=== PATIENT | female | born 1940 | race Caucasian/White ===

== ENCOUNTER 2016-11-03 10:05 | Inpatient (IN) | payer MEDICARE ==
[2016-11-03 10:40] LABS: ABSOLUTE NEUTROPHIL COUNT 11.4 K/mm3 (1.8-7.7); BASO # 0.1 K/mm3 (0.0-0.2); BASO % 0.4 % (0.2-1.0); EOS # 0.5 (0.0-0.5); EOS % 3.2 % (0.9-2.9); HEMATOCRIT 33.2 % (37.0-47.0); IMM NEUT # 0.1 K/mm3 (0-0.2); IMM NEUT% 0.6 % (0-1); LYMPH % 12.7 % (15-45); MEAN CORPUSCULAR HGB CONC 30.1 g/dl (33.0-37.0); MEAN PLATELET VOLUME 8.6 fl (7.4-10.4); MONO # 1.4 (0.0-0.8); MONO % 9.3 % (4-12); NEUT % 73.8 % (43-75); PLATELET COUNT 343 K/mm3 (130-400)
[2016-11-03 11:01] LABS: ALB/GLOB RATIO 1.2 (>1.0); ALBUMIN 3.6 gm/dL (3.5-5.7); CALCIUM 8.7 mg/dL (8.6-10.3)
[2016-11-03 12:05] LABS: URINE APPEARANCE CLEAR; URINE BILIRUBIN NEGATIVE (NEGATIVE); URINE BLOOD NEGATIVE (NEGATIVE); URINE COLOR YELLOW; URINE GLUCOSE (UA) NEGATIVE (NEGATIVE); URINE LEUKOCYTE ESTERASE NEGATIVE (NEGATIVE); URINE NITRITE NEGATIVE (NEGATIVE); URINE PROTEIN NEGATIVE (NEGATIVE); URINE UROBILINOGEN NORMAL (0-1 mg/dl)
--- NOTE | 2016-11-03 12:08 | RAD ---
CHEST - 2 VIEWS COMPARISON: Chest 2 views, 06/20/2016 HISTORY: Shortness of breath for 4 days. Past medical history of myocardial infarction, asthma, chronic obstructive pulmonary disease. Past surgical history of cardiac ablation x3. FINDINGS: Views: Frontal and lateral chest Lungs: Clear. In the posterior left perihilar region, 15 mm long foreign body, with metal and nonmetallic components, possibly associated with prior cardiac ablation. Heart and vessels: Normal heart size. Trachea and bronchi: Normal Mediastinum and [place]: Normal Costophrenic sulci: Normal Chest wall and bones: Normal. Upper abdomen: Normal. IMPRESSION: No acute finding. 15 mm long foreign body in the posterior left perihilar region, possibly associated with prior cardiac ablation.
[2016-11-03] MEDS ORDERED: BUMETANIDE 0.25 MG/ML 4ML VIAL IV ONE (12:30)
[2016-11-03 13:24] VITALS: BMI 32.3
[2016-11-03] MEDS ORDERED: MENTHOL/CETYLPYRD 1 EACH LOZENGE PO PRN (14:19)
[2016-11-03] MEDS ORDERED: BLISTEX LIPSTICK 1 EACH TP PRN (14:19)
[2016-11-03] MEDS ORDERED: SODIUM CHLORIDE 0.9% 100 ML IV PRN (14:19)
[2016-11-03] MEDS ORDERED: NITROGLYCERIN SL PRN (14:28)
[2016-11-03] MEDS ORDERED: POLYETHYLENE GLYCOL 3350 17 G POWD.SUSP PO PRN (14:28)
[2016-11-03] MEDS ORDERED: TRAMADOL HCL 50 MG TABLET PO PRN (14:28)
[2016-11-03] MEDS ORDERED: METOLAZONE 2.5 MG TABLET PO SCH (14:30)
--- NOTE | 2016-11-03 16:33 | HP ---
KUNAL COY [id number] : 1940 DATE OF ADMISSION: November 03, 2016 IDENTIFICATION: Ms. Coy is a 76-year-old patient of Dr. Julien Gómez and Dr. Oswald. CHIEF COMPLAINT: Shortness of breath. HISTORY OF PRESENT ILLNESS: Ms. Coy reports a two week history of intermittent symptoms of increasing dyspnea. She has had paroxysmal nocturnal dyspnea and nonproductive cough. She also reports episodes where she feels faint and thinks her blood pressure is low. She has not had any chest pain or palpitations. She has felt that her legs have been more swollen and her abdomen more swollen than usual, and she has noted up to seven pounds weight gain on her daily weight. Recently she has been unable to use her CPAP for obstructive sleep apnea due to an itchy nose, and she used to treat that with Nasonex but her insurance stopped paying for Nasonex so she has not been using it. She was not aware that it is now available over the counter. She had more severe dyspnea today so came to the emergency department and was found to have a saturation of 85% on room air and mildly elevated B-type natriuretic peptide. She was given an additional dose of bumetanide IV and referred to the hospitalist service. REVIEW OF SYSTEMS: HEENT: Headache currently and episodes of faintness. No loss of consciousness. She reports an ear infection on the left side about a month ago which has resolved. The itchy nose with allergies that is preventing her from using her CPAP. RESPIRATORY: As per History of Present Illness. CARDIAC: As per History of Present Illness. GASTROINTESTINAL: Intermittent reflux symptoms, no nausea or vomiting. No diarrhea, constipation, hematochezia or melena but does feel that her abdomen is distended or edematous. GENITOURINARY: She has had some hesitancy but not since her extra dose of Bumex. No dysuria. MUSCULOSKELETAL: Feels her feet and legs have been swollen. CONSTITUTIONAL: No fever or chills but has had weight increase up to seven pounds. PAST MEDICAL HISTORY: 1. Coronary artery disease with previous myocardial infarction noted. 2. Chronic diastolic heart failure. Echocardiogram in June,, showed left ventricular ejection fraction of 75%. 3. Chronic atrial fibrillation status post at least four different ablation procedures. She currently has an implanted loop recorder and is on anticoagulation with Eliquis. 4. Cerebrovascular disease with a prior stroke resulting in some mild expressive aphasia but that has resolved. The stroke was about ten years ago. 5. Chronic obstructive pulmonary disease with chronic respiratory failure using one to two liters of oxygen per minute intermittently at home. 6. Gout. 7. Gastroesophageal reflux disease. 8. Peripheral neuropathy. 9. Hypothyroidism status post thyroidectomy for Graves' disease. 10. Obstructive sleep apnea treated with CPAP but as above, she has been unable to use the CPAP for the last month. 11. Obesity with a body mass index of 32.3. 12. Allergic rhinitis. PAST SURGICAL HISTORY: 1. Appendectomy. 2. Multiple cardiac ablation procedures and the implanted loop recorder. 3. Cholecystectomy. 4. Cervical laminectomy. 5. Thyroidectomy. 6. Left elbow surgery. 7. Bilateral cataracts. ALLERGIES: MULTIPLE REPORTED TO: 1. ACETAMINOPHEN. 2. IBUPROFEN. 3. LISINOPRIL. 4. PROPAFENONE. 5. NITROFURANTOIN. 6. ADHESIVES. 7. ALLOPURINOL. 8. ATENOLOL. 9. METOPROLOL. MEDICATIONS: 1. Bumetanide 1 mg orally daily. 2. Isosorbide mononitrate 60 mg orally daily. 3. Uloric 40 mg orally daily. 4. Valsartan 80 mg orally daily. 5. Eliquis 5 mg orally twice daily. 6. Digoxin 0.125 mg orally daily. 7. Carvedilol 6.25 mg orally twice daily. 8. Metolazone 2.5 mg orally every other day or every 48 hours. Last taken yesterday. 9. Levothyroxine 175 mcg orally daily. 10. Levalbuterol HFA two puffs every four to six hours as needed. 11. Flecainide 50 mg orally every 12 hours. 12. Pantoprazole 40 mg orally daily. 13. Nitroglycerin 0.3 mg sublingual every five minutes as needed. Last used about two weeks ago. 14. Valacyclovir 500 mg orally daily. 15. Tramadol 50 mg orally three times daily as needed. 16. Stiolto Respimat two puffs inhaled each morning. 17. Pramipexole 0.5 mg orally nightly. 18. Potassium chloride 10 mEq orally daily. She does take an extra dose if she takes an extra diuretic. 19. MiraLax 17 g daily as needed. HABITS: She is a former smoker but quit at least 25 years ago. No alcohol or drug use. SOCIAL HISTORY: She lives alone and is independent in her activities of daily living but does live on the same property as her daughter, and her daughter helps her as needed. FAMILY HISTORY: Mother had breast cancer and stroke. Her brother had cancer of unknown type. PHYSICAL EXAMINATION: GENERAL: This is a pleasant 76-year-old in no acute distress. VITAL SIGNS: Temperature 98.9 degrees Fahrenheit, pulse 62, blood pressure 138/67, respiratory rate 18, oxygen saturation 85% on room air and 95% on two liters of oxygen by nasal cannula. HEENT: Pupils are equal, round and reactive. Extraocular muscles are intact. Oropharynx is moist. Artificial dentures in place. CHEST: Decreased breath sounds throughout. No wheezes, rhonchi or crackles appreciated. HEART: Is regular with a 2 to 3/6 systolic murmur. ABDOMEN: Is distended, soft, nontender, normal bowel tones. No organomegaly. EXTREMITIES: Trace edema in the upper calves, none at the ankles or feet. Good dorsalis pedis pulses. No cyanosis or clubbing. She does have onychomycosis of the toenails. NEUROLOGIC: Alert and oriented. No focal deficits. LABORATORY DATA: White blood cell count is elevated at 15.4, hemoglobin and hematocrit 10.0 and 33.2, platelets 343. Sodium 133, potassium 4.8, chloride 99, CO2 25, BUN 21, creatinine 1.0, glucose 107. Troponin I is less than 0.01. B-type natriuretic peptide is 222. Urinalysis is normal. RADIOLOGY: Chest x-ray read as no acute findings. The loop recorder is evident. ELECTROCARDIOGRAM: Sinus rhythm with first degree AV block. ASSESSMENT: 1. Ms. Coy appears to have exacerbation of chronic diastolic heart failure with acute on chronic hypoxemic respiratory failure. 2. Chronic obstructive pulmonary disease with chronic hypoxemic respiratory failure. 3. Obstructive sleep apnea with recent inability to use CPAP due to allergic rhinitis which has been untreated. 4. Underlying coronary artery disease with no evidence of current acute coronary syndrome. 5. Cerebrovascular disease. 6. Hypothyroidism. 7. Gastroesophageal reflux disease. 8. Chronic kidney disease stage 3 with chronic anemia. These appear to be at baseline. PLAN: 1. Admit to medical/surgical floor. 2. She was given an extra dose of Bumex in the emergency department. We will follow for diuretic response and provide additional diuresis as indicated. 3. Supplemental oxygen as needed and continue usual inhalers. 4. Start loratadine and Nasonex and encourage use of the CPAP. 5. Continue other outpatient medications. 6. FULL CODE status. 7. Patient is anticoagulated on Eliquis and does not require additional venous thromboembolism prophylaxis. 8. Physical and occupational therapy evaluation and treatment. She may be a candidate for acute rehabilitation therapy.
[2016-11-03] MEDS: MOMETASONE FUROATE NS SCH (16:48)
[2016-11-03] MEDS: POTASSIUM CHLORIDE 10 MEQ TAB.SR PO SCH (16:48)
[2016-11-03] MEDS: LORATADINE 10 MG TABLET PO SCH (16:48)
[2016-11-03] MEDS: PRAMIPEXOLE DI-HCL 0.25 MG TABLET PO SCH (20:23)
[2016-11-03] MEDS: FLECAINIDE ACETATE 50 MG TABLET PO SCH (20:23)
[2016-11-03] MEDS: CARVEDILOL 6.25 MG TABLET PO SCH (20:24)
[2016-11-03] MEDS: APIXABAN 5 MG TABLET PO SCH (20:24)
[2016-11-03] MEDS: DOCUSATE SODIUM 100 MG CAPSULE PO SCH (20:24)
[2016-11-04] MEDS: ISOSORBIDE MONONITRATE 60 MG TAB.SR PO SCH (05:01)
[2016-11-04] MEDS: LEVOTHYROXINE SODIUM 175 MCG TABLET PO SCH (07:20)
[2016-11-04] MEDS: APIXABAN 5 MG TABLET PO SCH ×2 (08:55→20:31)
[2016-11-04] MEDS: VALACYCLOVIR 500 MG TABLET PO SCH (08:55)
[2016-11-04] MEDS: FEBUXOSTAT 40 MG TABLET PO SCH (08:56)
[2016-11-04] MEDS: BUMETANIDE 1 MG TABLET PO SCH (08:57)
[2016-11-04] MEDS: LORATADINE 10 MG TABLET PO SCH (08:57)
[2016-11-04] MEDS: PANTOPRAZOLE 40 MG TABLET DR PO SCH (08:57)
[2016-11-04] MEDS: POTASSIUM CHLORIDE 10 MEQ TAB.SR PO SCH (08:57)
[2016-11-04] MEDS: MOMETASONE FUROATE NS SCH (08:57)
[2016-11-04] MEDS: FLECAINIDE ACETATE 50 MG TABLET PO SCH ×2 (08:57→20:32)
[2016-11-04] MEDS: DOCUSATE SODIUM 100 MG CAPSULE PO SCH ×3 (08:57→20:31)
[2016-11-04] MEDS: VALSARTAN 80 MG TABLET PO SCH (08:57)
[2016-11-04] MEDS: CARVEDILOL 6.25 MG TABLET PO SCH ×2 (08:57→20:32)
--- NOTE | 2016-11-04 11:51 | PDOC43 ---
- Subjective Chief Complaint: Dyspnea Patient reports having some dyspnea on exertion but sats did not drop. She also notes some ankle pain on right, not sure if it's gout related or not. In the past, she did get some long acting NTG (IMdur?) which did help some She recalls having some edema of ankles. She reports some sensation of abdominal bloating. - Objective Vital Signs Temperature 98.0 F 11/04/16 07:04 Pulse Rate 74 11/04/16 07:04 Respiratory Rate 24 11/04/16 07:04 Blood Pressure 123/67 11/04/16 07:04 O2 Saturation by Pulse Oximetry 91 11/04/16 07:04 Oxygen Delivery Method Nasal Cannula Oxygen Flow Rate 1 Vital Signs Last 12 Hours Temp Pulse Resp BP Pulse Ox 11/04/16 07:04 98.0 F 74 24 123/67 91 11/04/16 07:00 24 11/04/16 03:34 98.2 F 61 20 133/56 95 11/04/16 01:10 20 Intake and Output 11/02/16 11/03/16 11/04/16 23:59 23:59 23:59 Intake Total 620 1000 Output Total 650 800 Balance -30 200 General: Alert, Cooperative, No Acute Distress HEENT: Atraumatic Lungs: Clear to Auscultation Bilaterally Cardiovascular: Regular Rate and Rhythm Abdomen: Soft Extremities: Edema (no significant pitting edema. R ankle not red or hot. Feet appear normal.) Skin: Normal Color Neurological: Normal Speech Psych/Mental Status: Normal Affect Laboratory Tests 11/03/16 11/04/16 10:25 06:15 Troponin I < 0.01 0.02 B-Natriuretic Peptide 222 H Current Medications: Current meds reviewed in EMR. Active Medications Apixaban (Eliquis) 5 mg PO BID [facility] Last Admin: 11/04/16 08:55 Dose: 5 mg Benzocaine/Menthol (Cepacol) 1 each PO PRN PRN PRN Reason: Sore Throat Bumetanide (Bumex) 1 mg PO DAILY [facility] Last Admin: 11/04/16 08:57 Dose: 1 mg Carvedilol (Coreg) 6.25 mg PO BID [facility] Last Admin: 11/04/16 08:57 Dose: 6.25 mg Digoxin (Lanoxin) 0.125 mg PO DAILY@1200 [facility] Docusate Sodium (Colace) 100 mg PO BID [facility] Last Admin: 11/04/16 08:59 Dose: Not Given Flecainide Acetate (Tambobor) 50 mg PO Q12H [facility] Last Admin: 11/04/16 08:57 Dose: 50 mg Sodium Chloride (Sodium Chloride 0.9%) 100 mls @ 25 mls/hr IV PRN PRN PRN Reason: Flush Isosorbide Mononitrate (Imdur) 60 mg PO 0530 [facility] Last Admin: 11/04/16 05:01 Dose: 60 mg Levothyroxine Sodium (Levothroid) 175 mcg PO 0700 [facility] Last Admin: 11/04/16 07:20 Dose: 175 mcg Loratadine (Claritin) 10 mg PO DAILY [facility] Last Admin: 11/04/16 08:57 Dose: 10 mg Metolazone (Zaroxolyn) 2.5 mg PO Q48H [facility] Last Admin: 11/03/16 15:52 Dose: Not Given Miscellaneous (Levalbuterol Tartrate [Xopenex Hfa Mdi]) 2 puff IH Q4-6H PRN PRN Reason: Wheezing Miscellaneous (Tiotropium Br/Olodaterol Hcl [Stiolto Respimat Inhal [place]]) 2 puffs IH DAILY [facility] Mometasone Furoate (Nasonex) 2 sprays NS DAILY [facility] Last Admin: 11/04/16 08:57 Dose: 2 sprays Nitroglycerin (Nitrostat) 0.3 mg SL Q5M PRN PRN Reason: Chest Pain Pantoprazole Sodium (Protonix) 40 mg PO DAILY [facility] Last Admin: 11/04/16 08:57 Dose: 40 mg Petrolatum/Paraffin/Mineral Oil (Blistex) 1 each TP PRN PRN PRN Reason: Dry and/or chapped lips Polyethylene Glycol/Electrolytes (Miralax) 17 g PO DAILY PRN PRN Reason: Constipation Potassium Chloride (K-Dur) 10 meq PO DAILY [facility] Last Admin: 11/04/16 08:57 Dose: 10 meq Pramipexole Dihydrochloride (Pramipexole Dihydrochloride) 0.5 mg PO BEDTIME [facility] Last Admin: 11/03/16 20:23 Dose: 0.5 mg Sodium Chloride (Normal Saline 10ml Flush) 10 - 50 ml IV PRN PRN PRN Reason: IV Flush Sodium Chloride (Normal Saline 10ml Flush) 10 ml IV Q8HR [facility] Last Admin: 11/04/16 08:58 Dose: 10 ml Tramadol HCl (Ultram) 50 mg PO TID PRN PRN Reason: Pain Valacyclovir HCl (Valtrex) 500 mg PO DAILY [facility] Last Admin: 11/04/16 08:55 Dose: 500 mg Valsartan (Diovan) 80 mg PO DAILY [facility] Last Admin: 11/04/16 08:57 Dose: 80 mg - Problems: Assessment/Plan (1) CHF (congestive heart failure) Qualifiers: Congestive heart failure type: diastolic Congestive heart failure chronicity: chronic Qualifier Code: (I50.32) Chronic diastolic (congestive) heart failure Status: AcuteAssessment/Plan: BNP not reuben elevated, CXR not sugg of acute worsening. With poor activity tolerance, plan check echo, stress test (2) COPD (chronic obstructive pulmonary disease) Qualifiers: COPD type: unspecified COPD Qualifier Code: (J44.9) Chronic obstructive pulmonary disease, unspecified Status: ChronicAssessment/Plan: Maintaining sats despite sensation of dyspnea on walking. CXR not sugg acute change Continue regular meds. (3) CAD (coronary artery disease) Status: ChronicAssessment/Plan: Troponins remain normal (4) CKD (chronic kidney disease) stage 3, GFR 30-59 ml/min Status: ChronicAssessment/Plan: Stable, labs pending this am. (5) Atrial fibrillation Qualifiers: Atrial fibrillation type: paroxysmal Qualifier Code: (I48.0) Paroxysmal atrial fibrillation Status: ChronicAssessment/Plan: intermittent, no significant dysrhythmia reported with her dyspnea on exertion today. On Eliquis for anticoag VTE Prophylaxis: Eliquis Disposition: Hope to get stress test 11/05, and consider for DC or transfer at that time.
[2016-11-04] MEDS: DIGOXIN 0.125 MG TABLET PO SCH (12:28)
[2016-11-04 13:11] LABS: CALCIUM 8.6 mg/dL (8.6-10.3)
[2016-11-04] MEDS ORDERED: WATER FOR IRRIG,STERILE 500 ML BOT ONE (17:39)
[2016-11-04] MEDS: PRAMIPEXOLE DI-HCL 0.25 MG TABLET PO SCH (20:31)
[2016-11-05] MEDS: ISOSORBIDE MONONITRATE 60 MG TAB.SR PO SCH (04:51)
[2016-11-05] MEDS: LEVOTHYROXINE SODIUM 175 MCG TABLET PO SCH (06:52)
[2016-11-05 07:15] LABS: ABSOLUTE NEUTROPHIL COUNT 11.2 K/mm3 (1.8-7.7); BASO # 0.1 K/mm3 (0.0-0.2); BASO % 0.4 % (0.2-1.0); EOS # 0.5 (0.0-0.5); HEMATOCRIT 32.4 % (37.0-47.0); IMM NEUT # 0.1 K/mm3 (0-0.2); IMM NEUT% 0.7 % (0-1); MEAN CELL VOLUME 81.8 fl (81.0-99.0); MEAN CORPUSCULAR HEMOGLOBIN 25.3 pg (27.0-31.0); MEAN CORPUSCULAR HGB CONC 30.9 g/dl (33.0-37.0); MEAN PLATELET VOLUME 8.7 fl (7.4-10.4); MONO # 1.4 (0.0-0.8); MONO % 9.3 % (4-12); NEUT % 73.6 % (43-75); PLATELET COUNT 318 K/mm3 (130-400); RED CELL DISTRIBUTION WIDTH 16.7 % (11.5-14.5)
[2016-11-05 07:33] LABS: ALB/GLOB RATIO 1.3 (>1.0); ALBUMIN 3.4 gm/dL (3.5-5.7)
[2016-11-05] MEDS: APIXABAN 5 MG TABLET PO SCH ×2 (08:12→20:19)
[2016-11-05] MEDS ORDERED: REGADENOSON 0.1 MG DOSE IV ONE (10:32)
--- NOTE | 2016-11-05 10:52 | NUC MED ---
Exam: Nuclear medicine myocardial SPECT, ejection fraction and wall motion Comparison: 07/25/2014, CT angiogram chest 07/17/2016 Indication: Dyspnea on exertion, CHF. Technique: 11.3 mCi of technetium 99m sestamibi were administered for the rest portion of the exam and SPECT imaging was obtained per protocol. Stress was achieved via the administration of 0.4 mg of LexiScan. At maximum stress, 37.1 mCi of technetium 99m sestamibi were administered and SPECT imaging was obtained per protocol. Findings: Ejection fraction is calculated at 82%. There are no focal wall motion abnormalities. There is a stable fixed defect within the anterior wall towards the apex, most compatible with attenuation artifact. Myocardial perfusion is otherwise unremarkable. Impression: 1. No evidence of significant stress-induced ischemia. There is a stable mild fixed defect within the anterior wall towards the apex which probably reflects attenuation artifact. 2. No focal wall motion abnormalities. 3. Ejection fraction 82%. Report called to Dr. Barrios 1048 hours 11/05/2016.
[2016-11-05] MEDS: FEBUXOSTAT 40 MG TABLET PO SCH (11:13)
[2016-11-05] MEDS: MOMETASONE FUROATE NS SCH (11:14)
[2016-11-05] MEDS: LORATADINE 10 MG TABLET PO SCH (11:14)
[2016-11-05] MEDS: VALACYCLOVIR 500 MG TABLET PO SCH (11:14)
[2016-11-05] MEDS: FLECAINIDE ACETATE 50 MG TABLET PO SCH ×2 (11:14→20:20)
[2016-11-05] MEDS: CARVEDILOL 6.25 MG TABLET PO SCH ×2 (11:14→20:19)
[2016-11-05] MEDS: BUMETANIDE 1 MG TABLET PO SCH (11:15)
[2016-11-05] MEDS: PANTOPRAZOLE 40 MG TABLET DR PO SCH (11:15)
[2016-11-05] MEDS: POTASSIUM CHLORIDE 10 MEQ TAB.SR PO SCH (11:15)
[2016-11-05] MEDS: DOCUSATE SODIUM 100 MG CAPSULE PO SCH ×3 (11:15→20:21)
[2016-11-05] MEDS: DIGOXIN 0.125 MG TABLET PO SCH (11:15)
[2016-11-05] MEDS: VALSARTAN 80 MG TABLET PO SCH (11:15)
[2016-11-05] MEDS ORDERED: METOLAZONE 2.5 MG TABLET PO SCH (12:31)
--- NOTE | 2016-11-05 12:40 | PDOC43 ---
- Subjective Chief Complaint: Dyspnea Continues to have episodes of dyspnea with activity and paroxismal episodes while sleeping. Denies anxiety. No chest pain. - Objective Vital Signs Temperature 97.8 F 11/05/16 11:25 Pulse Rate 71 11/05/16 11:25 Respiratory Rate 20 11/05/16 11:25 Blood Pressure 132/65 11/05/16 11:25 O2 Saturation by Pulse Oximetry 96 11/05/16 11:25 Oxygen Delivery Method Nasal Cannula Oxygen Flow Rate 1 Intake and Output 11/04/16 11/05/16 11/06/16 06:59 06:59 06:59 Intake Total 1620 1480 Output Total 1450 2200 Balance 170 -720 General: Alert, Oriented x3, Cooperative, No Acute Distress HEENT: Mucous membr. moist/pink Lungs: Clear to Auscultation Bilaterally Cardiovascular: Regular Rate and Rhythm, Murmur (2/6) Abdomen: Soft, Normal Bowel Sounds, No Tenderness, No Masses Extremities: Edema (trace), Normal Pulses Skin: Normal Color Neurological: Normal Speech Psych/Mental Status: Normal Mood Laboratory 11/05/16 06:10 11/05/16 06:10 11/05/16 11/04/16 06:10 06:15 RBC 3.96 L MCH 25.3 L MCHC 30.9 L RDW 16.7 H BUN 26 H Estimated GFR 48 L 48 L Total Protein 6.1 L Albumin 3.4 L Current Medications: Current meds reviewed in EMR. - Problems: Assessment/Plan (1) CHF (congestive heart failure) Qualifiers: Congestive heart failure type: diastolic Congestive heart failure chronicity: chronic Qualifier Code: (I50.32) Chronic diastolic (congestive) heart failure Status: AcuteAssessment/Plan: BNP not reuben elevated, CXR not sugg of acute worsening. With poor activity tolerance, ECHO and MPI without changes. trial of metolazone daily. (2) CAD (coronary artery disease) Status: ChronicAssessment/Plan: Troponins remain normal, MPI today normal. (3) CKD (chronic kidney disease) stage 3, GFR 30-59 ml/min Status: ChronicAssessment/Plan: Stable, follow closely with increase in metolazone. (4) COPD (chronic obstructive pulmonary disease) Qualifiers: COPD type: unspecified COPD Qualifier Code: (J44.9) Chronic obstructive pulmonary disease, unspecified Status: ChronicAssessment/Plan: Maintaining sats despite sensation of dyspnea on walking. CXR not sugg acute change Continue regular meds. (5) CVD (cerebrovascular disease) Status: ChronicAssessment/Plan: Stable (6) GERD (gastroesophageal reflux disease) Qualifiers: Esophagitis presence: without esophagitis Qualifier Code: (K21.9) Gastro-esophageal reflux disease without esophagitis Status: Chronic Assessment/Plan: continue pantoprazole (7) CLAYTON (obstructive sleep apnea) Status: ChronicAssessment/Plan: continue CPAP when sleeping. (8) Hypothyroidism Qualifiers: Hypothyroidism type: acquired Qualifier Code: (E03.9) Hypothyroidism, unspecified Status: ChronicAssessment/Plan: stable (9) Leukocytosis Status: ChronicAssessment/Plan: unknown cause but stable, no evidence of acute infectious process. Recommend outpatient f/u/hematology referral. (10) Anemia Qualifiers: Anemia type: other cause Other causes of anemia: chronic disease, kidney Qualifier Code: (N18.9) Chronic kidney disease, unspecified Status: ChronicAssessment/Plan: Due to CKD, stable VTE Prophylaxis: Eliquis Disposition: Anticipate home 11/06
[2016-11-05] MEDS: METOLAZONE 2.5 MG TABLET PO SCH (13:38)
[2016-11-05] MEDS: PRAMIPEXOLE DI-HCL 0.25 MG TABLET PO SCH (20:19)
[2016-11-06] MEDS: ISOSORBIDE MONONITRATE 60 MG TAB.SR PO SCH (05:23)
[2016-11-06 07:16] LABS: CALCIUM 9.2 mg/dL (8.6-10.3); MAGNESIUM 2.1 mg/dL (1.9-2.7)
[2016-11-06] MEDS: LEVOTHYROXINE SODIUM 175 MCG TABLET PO SCH (07:25)
[2016-11-06 07:34] VITALS: BP 136/51
--- NOTE | 2016-11-06 07:57 | PDOC5 ---
ADMIT DATE: 11/03/16 DISCHARGE DATE: 11/06/16 ADMISSION DIAGNOSES: CHF PROCEDURES PERFORMED THIS HOSPITALIZATION: MPI--normal, ECHO--diastolic HF unchanged CONSULTATIONS: OT/PT stable for discharge to home HOSPITAL COURSE: This is a 76 year old who presented with paroxismal episodes of dyspnea. She was admitted and given extra diuretics, but did not appear to have an acute decompensation. She had an MPI and ECHO which did not show any changes. Her Metolazone was increased form q48 hours to q24 hours. On 11/06 she is at her baseline and will be discharged to home. - Exam Vital Signs Temperature 98.0 F 11/06/16 07:33 Pulse Rate 68 11/06/16 07:33 Respiratory Rate 18 11/06/16 07:33 Blood Pressure 136/51 11/06/16 07:33 O2 Saturation by Pulse Oximetry 95 11/06/16 07:33 Oxygen Delivery Method Nasal Cannula Oxygen Flow Rate 2 General: Alert, Oriented x3, Cooperative, No Acute Distress HEENT: Mucous membr. moist/pink Lungs: Clear to Auscultation Bilaterally Cardiovascular: Regular Rate and Rhythm, Murmur (2/6) Abdomen: Soft, Normal Bowel Sounds, No Tenderness, No Masses Extremities: Edema (trace), Normal Pulses Skin: Normal Color Neurological: Normal Speech Psych/Mental Status: Normal Mood - Results Laboratory 11/05/16 06:10 11/06/16 06:10 11/06/16 06:10 BUN 31 H Estimated GFR 40 L - Problems:Assessment/Plan (1) CHF (congestive heart failure) Qualifiers: Congestive heart failure type: diastolic Congestive heart failure chronicity: chronic Qualifier Code: (I50.32) Chronic diastolic (congestive) heart failure Status: AcuteAssessment/Plan: BNP not reuben elevated, CXR not sugg of acute worsening. With poor activity tolerance, ECHO and MPI without changes. trial of metolazone daily. (2) CAD (coronary artery disease) Status: ChronicAssessment/Plan: Troponins remain normal, MPI normal. (3) CKD (chronic kidney disease) stage 3, GFR 30-59 ml/min Status: ChronicAssessment/Plan: Stable, follow closely with increase in metolazone. (4) COPD (chronic obstructive pulmonary disease) Qualifiers: COPD type: unspecified COPD Qualifier Code: (J44.9) Chronic obstructive pulmonary disease, unspecified Status: ChronicAssessment/Plan: Maintaining sats despite sensation of dyspnea on walking. CXR not sugg acute change Continue regular meds. (5) CVD (cerebrovascular disease) Status: ChronicAssessment/Plan: Stable (6) GERD (gastroesophageal reflux disease) Qualifiers: Esophagitis presence: without esophagitis Qualifier Code: (K21.9) Gastro-esophageal reflux disease without esophagitis Status: Chronic Assessment/Plan: continue pantoprazole (7) CLAYTON (obstructive sleep apnea) Status: ChronicAssessment/Plan: continue CPAP when sleeping. (8) Hypothyroidism Qualifiers: Hypothyroidism type: acquired Qualifier Code: (E03.9) Hypothyroidism, unspecified Status: ChronicAssessment/Plan: stable (9) Leukocytosis Status: ChronicAssessment/Plan: unknown cause but stable, no evidence of acute infectious process. Recommend outpatient f/u/hematology referral. (10) Anemia Qualifiers: Anemia type: other cause Other causes of anemia: chronic disease, kidney Qualifier Code: (N18.9) Chronic kidney disease, unspecified Status: ChronicAssessment/Plan: Due to CKD, stable - Disposition: Disposition: Anticipate home 11/06 - Discharge Plan Forms: Discharge Instructions Additional Instructions: fluid restrict to 2 quarts per day. Prescriptions: Metolazone [ZAROLXOLYN 2.5 MG TABLET (SHF)] 2.5 mg PO DAILY #30 Follow-Up: Julien Gómez MD [Primary Care Provider] - 11/11/16 2:00 pm Yoly Oswald MD [Family Provider] - As scheduled Condition: Stable Disposition: Home
[2016-11-06 08:19] LABS: SPECIFIC GRAVITY 1.015 (1.001-1.030); URINE BILIRUBIN NEGATIVE (NEGATIVE); URINE BLOOD NEGATIVE (NEGATIVE); URINE GLUCOSE (UA) NEGATIVE (NEGATIVE); URINE LEUKOCYTE ESTERASE TRACE (NEGATIVE); URINE NITRITE NEGATIVE (NEGATIVE); URINE PROTEIN NEGATIVE (NEGATIVE); URINE UROBILINOGEN NORMAL (0-1 mg/dl)
[2016-11-06 08:21] LABS: URINE APPEARANCE HAZY; URINE COLOR YELLOW
[2016-11-06 08:25] LABS: URINE EPITHELIAL CELLS 0-1 /hpf; URINE RBC 0-1 /hpf; URINE WBC 15-20 /hpf
[2016-11-06 08:26] LABS: URINE BACTERIA 4+
[2016-11-06] MEDS: VALSARTAN 80 MG TABLET PO SCH (09:14)
[2016-11-06] MEDS: PANTOPRAZOLE 40 MG TABLET DR PO SCH (09:14)
[2016-11-06] MEDS: MOMETASONE FUROATE NS SCH (09:14)
[2016-11-06] MEDS: CARVEDILOL 6.25 MG TABLET PO SCH (09:14)
[2016-11-06] MEDS: LORATADINE 10 MG TABLET PO SCH (09:14)
[2016-11-06] MEDS: BUMETANIDE 1 MG TABLET PO SCH (09:15)
[2016-11-06] MEDS: FLECAINIDE ACETATE 50 MG TABLET PO SCH (09:15)
[2016-11-06] MEDS: FEBUXOSTAT 40 MG TABLET PO SCH (09:15)
[2016-11-06] MEDS: DOCUSATE SODIUM 100 MG CAPSULE PO SCH (09:15)
[2016-11-06] MEDS: POTASSIUM CHLORIDE 10 MEQ TAB.SR PO SCH (09:15)
[2016-11-06] MEDS: APIXABAN 5 MG TABLET PO SCH (09:15)
[2016-11-06] MEDS: VALACYCLOVIR 500 MG TABLET PO SCH (09:15)
[2016-11-06] MEDS: METOLAZONE 2.5 MG TABLET PO SCH (09:21)
== END 2016-11-06 09:40 | disposition home or self-care (01) | DRG 291 ==
LOC: ED 10:05 → MS 12:48
PROVIDERS: ADMIT Family Medicine; ATTEND Family Medicine
DX: I50.32 Chronic diastolic (congestive) heart failure (principal); J96.21 Acute and chronic respiratory failure with hypoxia; G47.33 Obstructive sleep apnea (adult) (pediatric); I25.10 Atherosclerotic heart disease of native coronary artery without angina pectoris; I48.0 Paroxysmal atrial fibrillation; J44.9 Chronic obstructive pulmonary disease, unspecified; M10.9 Gout, unspecified; K21.9 Gastro-esophageal reflux disease without esophagitis; G62.9 Polyneuropathy, unspecified; E03.9 Hypothyroidism, unspecified; E05.00 Thyrotoxicosis with diffuse goiter without thyrotoxic crisis or storm; E66.9 Obesity, unspecified; Z68.32 Body mass index [BMI] 32.0-32.9, adult; J30.9 Allergic rhinitis, unspecified; N18.3 Chronic kidney disease, stage 3 (moderate); D63.1 Anemia in chronic kidney disease